=== PATIENT | female | born 1945 | race Caucasian/White ===

== ENCOUNTER → 2022-06-29 | Outpatient (CLI) | payer MEDICARE | LOC: PET 12:50 | PROVIDERS: ATTEND Internal Medicine Hematology & Oncology | DX: C50.112 Malignant neoplasm of central portion of left female breast (principal); C22.9 Malignant neoplasm of liver, not specified as primary or secondary; Z17.1 Estrogen receptor negative status [ER-] | CPT/HCPCS: 78815; A9552 ==